=== PATIENT | female | born 1960 | race Caucasian/White ===

== ENCOUNTER → 2016-07-23 | Outpatient (CLI) | payer BC ==
--- NOTE | 2016-07-23 12:03 | WOMENS IMAGING REPORT ---
EXAM DESCRIPTION: BILAT SCREENING MAMMO W/CAD COMPLETED DATE/TIME: 07/23/2016 8:16 am REASON FOR STUDY: Z12.31 ROUTINE SCREENING MAMMO Z12.31 ENCNTR SCREEN MAMMOGRAM FOR MALIGNANT NEOPL ASM OF RICARDO COMPARISON: None. TECHNIQUE: Standard craniocaudal and mediolateral oblique views of each breast recorded using OpenDoora l acquisition. LIMITATIONS: None. FINDINGS: No masses, calcifications or architectural distortion. No areas of suspicion. Read with the assistance of CAD. .[facility] - R2 Cenova Version 1.3 .[facility] - R2 Cenova Version 1.3 .[facility] - R2 Cenova Version 2.4 .[facility] - R2 Cenova Version 2.4 .[facility] - R2 [employer] Worker Version 9.2 BREAST DENSITY: b. There are scattered areas of fibroglandular density. BIRAD: 1 NEGATIVE RECOMMENDATION: ROUTINE SCREENING COMMENT: PATIENT NOTIFIED BY LETTER. The [employer] recommends an annual screening mammogram for women aged 40 years or over. Each patient will receive a reminder prior to the anniversary date of her mammogram. The [employer] (ACR) has developed recommendations for screening MRI of the breast s in certain patient populations, to be used in conjunction with mammography. Breast MRI surveillanc e may be appropriate for women with more than 20% lifetime risk of developing breast cancer as deter mined by genetic testing, significant family history of the disease, or history of mantle radiation f or Hodgkins Disease. ACR Practice Guidelines 2008. TECHNICAL DOCUMENTATION: FINDING NUMBER: (1) ASSESSMENT: (1) JOB ID: [id number] [employer]- All Rights Reserved
== END ==
LOC: WI 08:00
PROVIDERS: ATTEND Family Medicine
DX: Z12.31 Encounter for screening mammogram for malignant neoplasm of breast (principal)
CPT/HCPCS: 77067; G0202

== ENCOUNTER → 2016-09-12 | Outpatient (CLI) | payer BC | LOC: RAD 15:09 | PROVIDERS: ATTEND Urology | DX: N20.0 Calculus of kidney (principal) | CPT/HCPCS: 74176 ==

== ENCOUNTER 2016-11-22 16:11 | Emergency (ER) | payer BC ==
--- NOTE | 2016-11-22 18:18 | ER Document Report ---
ED Medical Screen (RME) - General Mode of Arrival: Ambulatory Information source: Patient TRAVEL OUTSIDE OF THE U.S. IN LAST 30 DAYS: No <SHADI BHAKTA - Last Filed: 11/22/16 20:49> <RUBENS VENCES - Last Filed: 11/27/16 19:25> - General Chief Complaint: Chest Pain Stated Complaint: CHEST PAIN Time Seen by Provider: 11/22/16 18:09 Notes: Patient presents with complaints of chest pain. Patient states she is followed by [facility] for psychiatric health concerns and her Focalin prescription was changed from 20 mg back down to 15 mg due to an elevated heart rate. Patient states her pain has been "all day" beginning at 1000. Patient states the pain is located at her sternum and radiates to her back. Patient states her pain is "constant". Patient states she had a 1 [address] monitor by Dr. George however she never returned to get the results of it. Patient denies any change in her chest pain with activity, history of GERD, vomiting, fever, chills, or cough. ( SHADI BHAKTA) - Related Data Allergies/Adverse Reactions: meperidine [From Demerol] Allergy (Verified 11/22/16 16:25) Past Medical History - Past Medical History Cardiac Medical History: Reports: Hx Hypertension - history of and no longer on meds Denies: Hx Coronary Artery Disease, Hx Heart Attack Pulmonary Medical History: Denies: Hx Asthma, Hx Bronchitis, Hx COPD, Hx Pneumonia Neurological Medical History: Denies: Hx Cerebrovascular Accident, Hx Seizures Renal/ Medical History: Denies: Hx Peritoneal Dialysis Musculoskeltal Medical History: Denies Hx Arthritis Past Surgical History: Reports: Hx Orthopedic Surgery - ORIF of right ankle, Hx Tubal Ligation - Immunizations Hx Diphtheria, Pertussis, Tetanus Vaccination: No <SHADI BHAKTA - Last Filed: 11/22/16 20:49> Review of Systems - Review of Systems Cardiovascular: See HPI, Chest pain <SHADI BHAKTA - Last Filed: 11/22/16 20:49> Physical Exam - Respiratory Respiratory status: No respiratory distress Chest status: Nontender Breath sounds: Normal - Cardiovascular Rhythm: Regular Heart sounds: Normal auscultation Murmur: No <SHADI BHAKTA - Last Filed: 11/22/16 20:49> Course - Laboratory Result Diagrams: 11/22/16 18:55 11/22/16 18:55 <SHADI BHAKTA - Last Filed: 11/22/16 20:49> - Laboratory Result Diagrams: 11/22/16 18:55 11/22/16 18:55 <RUBENS VENCES - Last Filed: 11/27/16 19:25> - Re-evaluation Re-evalutation: 11/22/16 18:19 Patient presents emergency room chief with substernal chest pain radiating to her back. She states it has been going on constantly since about 10:00 this morning. Says she has a history of anxiety and she has panic attacks occasionally she will get some intermittent symptoms but is never been like this before. Said she saw Dr. Walton last year and were a Holter monitor for a day but she was in a bad mood because she was out of her ADHD medications and never returned. She denies having a heart attack in the past and is not not had a stress test or heart catheterization. Her doctor that she saw at the [facility] today who put her on her ADHD medication is been concerned about her heart rate and has been taking her medication for ADHD over the last several weeks. She denies any epigastric abdominal pain right upper quadrant pain or known gallbladder problems. She denies any issues with food. On examination she is well-appearing nontoxic in no acute distress head is normal psych atraumatic heart lungs abdomen soft no tenderness guarding or rigidity. EKG interpreted by myself to show a sinus tachycardia with no acute ST segment elevations or depression. Plan cardiac enzymes chest x-ray and she is getting in the bed in the back to see me inside physician for further evaluation and disposition I personally performed the services described in the documentation reviewed the documentation recorded by my scribe in my presence and it accurately and completely records my words and actions (RUBENS VENCES) - Vital Signs Vital signs: Temp Pulse Resp BP Pulse Ox 97.6 F 89 16 142/81 H 97 11/22/16 22:26 11/22/16 22:26 11/22/16 22:26 11/22/16 22:26 11/22/16 22:26 - Laboratory Laboratory results interpreted by me: 11/22/16 11/22/16 11/22/16 18:55 18:55 20:05 WBC 11.1 H Carbon Dioxide 31 H Glucose 113 H Ur Leukocyte Esterase TRACE H Urine Ascorbic Acid 40 H Doctor's Discharge <SHADI BHAKTA - Last Filed: 11/22/16 20:49> <RUBENS VENCES - Last Filed: 11/27/16 19:25> - Discharge Clinical Impression: Palpitations Chest pain Qualifiers: Chest pain type: unspecified Qualified Code(s): R07.9 - Chest pain, unspecified Condition: Stable Disposition: HOME, SELF-CARE Instructions: Chest Pain of Unclear Cause ([facility]), Palpitations (Irregular or Rapid Heartrate) ([facility]) Additional Instructions: Follow up with your primary care provider and strapping machine tender in one to 2 days. Return to the emergency room immediately if symptoms worsen or any additional concerns. Forms: Return to Work Referrals: WERO IRVING, EMAIL ADMINISTRATOR-C [Primary Care Provider] - Follow up as needed Scribe Documentation - Scribe Written by Scribe:: Wicho Penaloza, 11/22/16 2100 acting as scribe for :: Mike <SHADI BHAKTA - Last Filed: 11/22/16 20:49>
[2016-11-22] MEDS ORDERED: ASPIRIN 325 MG TABLET PO ONE (18:19)
[2016-11-22 19:15] LABS: ABSOLUTE BASOPHILS # (AUTO) 0.1 10^3/uL (0.0-0.2); ABSOLUTE LYMPHOCYTES (AUTO) 3.2 10^3/uL (0.5-4.7); ABSOLUTE MONOCYTES (AUTO) 0.7 10^3/uL (0.1-1.4); ABSOLUTE NEUT (AUTO) 7.1 10^3/uL (1.7-8.2); BASOPHILS % (AUTO) 0.8 % (0-2); EOSINOPHILS % (AUTO) 0.3 % (0-6); HEMATOCRIT 43.8 % (36.0-47.0); HEMOGLOBIN 14.1 g/dL (12.0-15.5); HGB HCT DIFFERENCE -1.5; LYMPHOCYTES % (AUTO) 28.4 % (13-45); MEAN CORPUSCULAR HEMOGLOBIN 29.4 pg (27.0-33.4); MEAN CORPUSCULAR HGB CONC 32.1 g/dL (32.0-36.0); MEAN CORPUSCULAR VOLUME 91 fl (80-97); MONOCYTES % (AUTO) 6.3 % (3-13); SEGMENTED NEUTROPHILS % (AUTO) 64.2 % (42-78); WHITE BLOOD COUNT 11.1 10^3/uL (4.0-10.5)
[2016-11-22 19:38] LABS: ALANINE AMINOTRANSFERASE 49 U/L (9-52); ALBUMIN 4.4 g/dL (3.5-5.0); ALKALINE PHOSPHATASE 118 U/L (38-126); ANION GAP 10 (5-19); ASPARTATE AMINO TRANSFERASE 33 U/L (14-36); BILIRUBIN,DIRECT 0.4 mg/dL (0.0-0.4); BILIRUBIN,TOTAL 0.5 mg/dL (0.2-1.3); BLOOD UREA NITROGEN 13 mg/dL (7-20); CALCIUM 9.7 mg/dL (8.4-10.2); CARBON DIOXIDE 31 mmol/L (22-30); CHLORIDE 100 mmol/L (98-107); CREATININE RESULT 0.81 mg/dL (0.52-1.25); GLUCOSE 113 mg/dL (75-110); POTASSIUM 3.9 mmol/L (3.6-5.0); SODIUM 140.7 mmol/L (137-145); TOTAL PROTEIN 7.6 g/dL (6.3-8.2)
[2016-11-22 19:53] LABS: TROPONIN I < 0.012 ng/mL
--- NOTE | 2016-11-22 20:26 | ER Document Report ---
ED Cardiac - General Chief Complaint: Chest Pain Stated Complaint: CHEST PAIN Time Seen by Provider: 11/22/16 18:09 Mode of Arrival: Ambulatory Information source: Patient TRAVEL OUTSIDE OF THE [place]. IN LAST 30 DAYS: No - HPI Patient complains to provider of: Chest pain, Palpitations, Shortness of breath Was the onset of pain: Sudden Is the pain a: New problem Chest pain location: Substernal, Pleuritic Quality of pain: Achy Severity now: Moderate Severity at worst: Moderate Chest pain precipitating factors: At Rest Associated symptoms: Palpitations, Shortness of breath Exacerbated by: Deep breaths Relieved by: Nothing Similar symptoms previously: Yes Recently seen / treated by doctor: Yes Notes: Patient is a 56-year-old female who presents to the emergency room complaining of left-sided chest pain which is dull and achy in nature and radiates through to the back, she reports this started around 3 PM today, it is worse with deep breath and she feels short of breath at time, she reports a small amount of nausea earlier in the day which is better now, as well as palpitations and tachycardia, however she has been having some symptoms related to tachycardia since June 2016 which she relates to medication dosage adjustments to her Focalin, she does have a history of adult ADHD, generalized anxiety disorder with panic attacks, bipolar disorder with depression, denies being a smoker, did not take hormone replacement and no recent periods of immobilization, she does report a history of an ankle fracture in January 2016 but no other traumatic injuries - Related Data Allergies/Adverse Reactions: meperidine [From Demerol] Allergy (Verified 11/22/16 16:25) Past Medical History - General Information source: Patient - Social History Smoking Status: Never Smoker Family History: Reviewed & Not Pertinent Patient has suicidal ideation: No Patient has homicidal ideation: No - Past Medical History Cardiac Medical History: Reports: Hx Hypertension - history of and no longer on meds Denies: Hx Coronary Artery Disease, Hx Heart Attack Pulmonary Medical History: Denies: Hx Asthma, Hx Bronchitis, Hx COPD, Hx Pneumonia Neurological Medical History: Denies: Hx Cerebrovascular Accident, Hx Seizures Renal/ Medical History: Denies: Hx Peritoneal Dialysis Musculoskeltal Medical History: Denies Hx Arthritis Past Surgical History: Reports: Hx Orthopedic Surgery - ORIF of right ankle, Hx Tubal Ligation - Immunizations Hx Diphtheria, Pertussis, Tetanus Vaccination: No Review of Systems - Review of Systems Constitutional: No symptoms reported EENT: No symptoms reported Cardiovascular: See HPI Respiratory: See HPI Gastrointestinal: See HPI Genitourinary: No symptoms reported Female Genitourinary: No symptoms reported Musculoskeletal: No symptoms reported Skin: No symptoms reported Hematologic/Lymphatic: No symptoms reported Neurological/Psychological: No symptoms reported -: Yes All other systems reviewed and negative Physical Exam - Vital signs Vitals: Temp Pulse Resp BP Pulse Ox 99.2 F 110 H 18 172/91 H 95 11/22/16 16:26 11/22/16 16:26 11/22/16 16:26 11/22/16 16:11/22/16 16:26 Interpretation: Hypertensive, Tachycardic - General General appearance: Appears well, Alert - HEENT Head: Normocephalic, Atraumatic Eyes: Normal Pupils: PERRL - Respiratory Respiratory status: No respiratory distress Chest status: Nontender Breath sounds: Normal Chest palpation: Normal - Cardiovascular Rhythm: Regular Heart sounds: Normal auscultation Murmur: No - Abdominal Inspection: Normal Distension: No distension Bowel sounds: Normal Tenderness: Nontender Organomegaly: No organomegaly - Back Back: Normal, Nontender - Extremities General upper extremity: Normal inspection, Nontender, Normal color, Normal ROM , Normal temperature General lower extremity: Normal inspection, Nontender, Normal color, Normal ROM , Normal temperature, Normal weight bearing. No: James's sign - Neurological Neuro grossly intact: Yes Cognition: Normal Orientation: AAOx4 Blaire Coma Scale Eye Opening: Spontaneous Blaire Coma Scale Verbal: Oriented Blaire Coma Scale Motor: Obeys Commands Blaire Coma Scale Total: 15 Speech: Normal Motor strength normal: LUE, RUE, LLE, RLE Sensory: Normal - Psychological Associated symptoms: Normal affect, Normal mood - Skin Skin Temperature: Warm Skin Moisture: Dry Skin Color: Normal Course - Re-evaluation Re-evalutation: 11/22/16 21:40 Lab and imaging findings were discussed with patient at bedside which are unremarkable, symptoms likely related to recent medication changes, she will be discharged with instructions for follow-up and advised to return if symptoms worsen, patient acknowledges understanding and agreement with this plan - Vital Signs Vital signs: Temp Pulse Resp BP Pulse Ox 99.2 F 110 H 18 172/91 H 95 11/22/16 16:26 11/22/16 16:26 11/22/16 16:26 11/22/16 16:26 11/22/16 16:26 - Laboratory Result Diagrams: 11/22/16 18:55 11/22/16 18:55 Laboratory results interpreted by me: 11/22/16 11/22/16 11/22/16 18:55 18:55 20:05 WBC 11.1 H Carbon Dioxide 31 H Glucose 113 H Ur Leukocyte Esterase TRACE H Urine Ascorbic Acid 40 H - Diagnostic Test Radiology reviewed: Image reviewed, Reports reviewed - EKG Interpretation by Me EKG shows normal: Sinus rhythm Rate: Tachycardia - 114 Discharge - Discharge Clinical Impression: Palpitations Chest pain Qualifiers: Chest pain type: unspecified Qualified Code(s): R07.9 - Chest pain, unspecified Condition: Stable Disposition: HOME, SELF-CARE Instructions: Chest Pain of Unclear Cause ([facility]), Palpitations (Irregular or Rapid Heartrate) ([facility]) Additional Instructions: Follow up with your primary care provider and gateman in one to 2 days. Return to the emergency room immediately if symptoms worsen or any additional concerns. Forms: Return to Work
[2016-11-22 20:30] LABS: APPEARANCE,URINE SLIGHTLY-CLOUDY; BILIRUBIN,URINE NEGATIVE (NEGATIVE); GLUCOSE, URINE NEGATIVE (NEGATIVE); KETONES,URINE NEGATIVE (NEGATIVE); LEUKOCYTE ESTERASE,URINE TRACE (NEGATIVE); NITRITE,URINE NEGATIVE (NEGATIVE); PROTEIN,URINE NEGATIVE (NEGATIVE); URINE SPECIFIC GRAVITY 1.025; UROBILINOGEN,URINE NEGATIVE mg/dL (<2.0)
[2016-11-22 22:27] VITALS: BP 142/81
--- NOTE | 2016-11-23 17:42 | EKG REPORT ---
SEVERITY:- OTHERWISE NORMAL ECG - SINUS TACHYCARDIA : Confirmed by: Polly Hayes MD 23-Nov-2016 17:41:45
== END 2016-11-22 22:26 | disposition home or self-care (01) ==
LOC: ER 16:11
DX: R00.2 Palpitations (principal); R07.9 Chest pain, unspecified; R06.02 Shortness of breath
CPT/HCPCS: 36415; 71010; 71275; 80053; 81001; 83690; 83880; 84484; 85025; 93005; 93010; 99285

== ENCOUNTER 2017-04-25 20:57 | Emergency (ER) | payer SELFPAY ==
--- NOTE | 2017-04-25 21:22 | ER Document Report ---
ED General Pain - General Stated Complaint: CHEST PAIN Time Seen by Provider: 04/25/17 21:08 Mode of Arrival: Medic Information source: Patient Notes: 57-year-old female presents to ED for complaint of chest pain started this afternoon after she was running around with her daughter. She states she had sudden chest pain with nausea. She came via EMS. EMS gave her aspirin and nitro with no relief. TRAVEL OUTSIDE OF THE [place] IN LAST 30 DAYS: No - HPI Onset: This evening Onset/Duration: Sudden Quality of pain: Sharp Severity: Moderate Pain Level: 4 Context: New onset, Other - Recent cough and cold with no fevers Exacerbated by: Coughing - Recent cough and cold, Other - States she was out running around with her daughter when she had the sudden pain in her chest and nausea Relieved by: Denies Similar symptoms previously: Yes Recently seen / treated by doctor: No - Related Data Allergies/Adverse Reactions: meperidine [From Demerol] Allergy (Verified 11/22/16 16:25) Past Medical History - General Information source: Patient - Social History Smoking Status: Never Smoker Cigarette use (# per day): No Chew tobacco use (# tins/day): No Smoking Education Provided: No Frequency of alcohol use: None Drug Abuse: None Lives with: Family Family History: Reviewed & Not Pertinent Patient has suicidal ideation: No Patient has homicidal ideation: No - Past Medical History Cardiac Medical History: Reports: Hx Hypertension - history of and no longer on meds Pulmonary Medical History: Reports: None EENT Medical History: Reports: None Neurological Medical History: Reports: None Endocrine Medical History: Reports: None Renal/ Medical History: Reports: None Malignancy Medical History: Reports: None GI Medical History: Reports: None Musculoskeltal Medical History: Reports Hx Musculoskeletal Deformity, Reports Hx Musculoskeletal Trauma Skin Medical History: Reports None Psychiatric Medical History: Reports: None Traumatic Medical History: Reports: Hx Fractures - right ankle Infectious Medical History: Reports: None Past Surgical History: Reports: Hx Dilation and Curettage, Hx Genitourinary Surgery - bladder lift with mash, Hx Hysterectomy, Hx Orthopedic Surgery - ORIF of right ankle, Hx Tubal Ligation - Immunizations Hx Diphtheria, Pertussis, Tetanus Vaccination: No Review of Systems - Review of Systems Constitutional: Recent illness EENT: Nose congestion Cardiovascular: Chest pain Respiratory: Cough Gastrointestinal: Nausea. denies: Vomiting Genitourinary: No symptoms reported Female Genitourinary: No symptoms reported Musculoskeletal: No symptoms reported Skin: No symptoms reported Hematologic/Lymphatic: No symptoms reported Neurological/Psychological: No symptoms reported -: Yes All other systems reviewed and negative Physical Exam - Vital signs Vitals: Pulse Ox 94 04/25/17 21:11 Interpretation: Normal - General General appearance: Appears well, Alert - HEENT Head: Normocephalic, Atraumatic Eyes: Normal Pupils: PERRL Ears: Normal External canal: Normal Tympanic membrane: Normal Sinus: Normal Nasal: Swelling, Clear rhinorrhea Mouth/Lips: Normal Mucous membranes: Normal Pharynx: Normal Neck: Normal - Respiratory Respiratory status: No respiratory distress Chest status: Tender - Bilateral worse on left Breath sounds: Nonproductive cough. No: Rales, Rhonchi, Stridor, Wheezing Chest palpation: Normal - Cardiovascular Rhythm: Regular Heart sounds: Normal auscultation Murmur: No - Abdominal Inspection: Normal Distension: No distension Bowel sounds: Normal Tenderness: Nontender Organomegaly: No organomegaly - Back Back: Normal, Nontender - Extremities General upper extremity: Normal inspection, Nontender, Normal color, Normal ROM , Normal temperature General lower extremity: Normal inspection, Nontender, Normal color, Normal ROM , Normal temperature, Normal weight bearing. No: James's sign - Neurological Neuro grossly intact: Yes Cognition: Normal Orientation: AAOx4 Blaire Coma Scale Eye Opening: Spontaneous Blaire Coma Scale Verbal: Oriented [place] Coma Scale Motor: Obeys Commands [place] Coma Scale Total: 15 Speech: Normal Motor strength normal: LUE, RUE, LLE, RLE Sensory: Normal - Psychological Associated symptoms: Normal affect, Normal mood - Skin Skin Temperature: Warm Skin Moisture: Dry Skin Color: Normal Course - Re-evaluation Re-evalutation: 04/25/17 22:32 X-rays and labs discussed with patient and Dr. Mahmood. Will discharge patient home with prescription for doxycycline and [place] dispense pack for her pain. Patient to follow-up with her primary doctor. Written report of labs and x-ray given to patient. Patient has a left lower lobe pneumonia on x-ray. WBC is 14.8 with segs of 70.3 cardiac enzymes are negative labs are within normal ranges. - Vital Signs Vital signs: Temp Pulse Resp BP Pulse Ox 19 115/76 95 04/25/17 22:00 04/25/17 21:13 04/25/17 22:00 - Laboratory Result Diagrams: 04/25/17 21:25 04/25/17 21:25 Laboratory results interpreted by me: 04/25/17 04/25/17 21:25 21:25 WBC 14.8 H Absolute Neutrophils 10.4 H Glucose 144 H - Diagnostic Test Radiology reviewed: Image reviewed, Reports reviewed Discharge - Discharge Clinical Impression: Left lower lobe pneumonia Qualifiers: Pneumonia type: due to unspecified organism Qualified Code(s): J18.1 - Lobar pneumonia, unspecified organism Condition: Stable Disposition: HOME, SELF-CARE Additional Instructions: PNEUMONIA: Your examination indicates that you have pneumonia. This is an infection of the lung tissue, usually caused by bacteria or a virus. Symptoms include cough, fever, shaking chills, chest pain, shortness of breath, and coughing up bloody sputum. Treatment for bacterial pneumonia includes rest, antibiotics for 10 to 14 days, increasing your clear liquid intake, a cool mist humidifier at your bedside, and fever medication. Often, a repeat chest X-ray is performed in a few weeks--even if you feel better--to ascertain whether the infection has completely resolved and no underlying lung problem is present. You should call the physician if you develop persistent vomiting, high fever that does not respond to fever medication, increasing shortness of breath , confusion, or lethargy. Also, failure to improve within two to three days is an indication for re-examination. DOXYCYCLINE: Doxycycline (Vibramycin, Doryx) is an antibiotic of the tetracycline family. This type of drug is useful for infections of the respiratory tract and genital tract, and is sometimes used for intestinal infections. Unlike most tetracyclines, doxycycline can be taken with food. It is longer acting, and (usually) less prone to side effects than regular tetracycline. Tetracycline antibiotics can stain immature teeth and SHOULD NOT BE TAKEN BY CHILDREN, NURSING MOTHERS, OR WOMEN. Tetracyclines can make you more prone to sunburn. Abdominal cramping, nausea, and diarrhea are occasional side effects. Women may experience vaginal yeast infections. Call the doctor at once if you develop hives, itching, shortness of breath , or lightheadedness. USE OF ACETAMINOPHEN (Tylenol): Acetaminophen may be taken for pain relief or fever control. It's much safer than aspirin, offering a wider range of "safe" dosages. It is safe during . Some brand names are Tylenol, Panadol, Datril, Anacin 3, Tempra, and Liquiprin. Acetaminophen can be repeated every four hours. The following are maximum recommended dosages: WEIGHT Dose Drops Elixir Chewable( 80mg) (LBS.) drprs=droppers tsp=teaspoon 6 40 mg 0.4 ml (1/2) 6-11 80 mg 0.8 ml (full) tsp 1 tab 12-16 120 mg 1 1/2 drprs 3/4 tsp 1 1/2 tabs 17-23 160 mg 2 drprs 1 tsp 2 tabs 24-30 240 mg 3 drprs 1 1/2 tsp 3 tabs 30-35 320 mg 2 tsp 4 tabs 36-41 360 mg 2 1/4 tsp 4 1/2 tabs 42-47 400 mg 2 1/2 tsp 5 tabs 48-53 480 mg 3 tsp 6 tabs 54-59 520 mg 3 1/4 tsp 6 1/2 tabs 60-64 560 mg 3 1/2 tsp 7 tabs 65-70 600 mg 3 3/4 tsp 7 1/2 tabs 71-76 640 mg 4 tsp 8 tabs 77-82 720 mg 4 1/2 tsp 9 tabs 83-88 800 mg 5 tsp 10 tabs >89 pounds or adults 650 mg to 900 mg Acetaminophen can be repeated every four hours. Maximum dose not to exceed 4000 mg a day. These maximum recommended dosages are slightly higher than the dosages written on the product container, but these dosages are very safe and below the toxic dosage for acetaminophen. Oral Narcotic Medication You have been given a [email or web address] dispense pack for pain control. This medication is a narcotic. It's best taken with food, as nausea can result if taken on an empty stomach. Don't operate machinery or drive within six hours of taking this medication. Do not combine this medicine with alcohol, or with any medication which can cause sedation (such as cold tablets or sleeping pills) unless you get permission from the physician. Narcotics tend to cause constipation. If possible, drink plenty of fluids and eat a diet high in fiber and fruits. Do not take Tylenol at the same time as you are taking your narcotics as they both have Tylenol. Try to space her narcotics out and take Tylenol or Motrin for your pain. Take the narcotics when you pain is unrelieved with Tylenol or Motrin. FOLLOW-UP CARE: If you have been referred to a physician for follow-up care, call the physician s office for an appointment as you were instructed or within the next two days. If you experience worsening or a significant change in your symptoms, notify the physician immediately or return to the Emergency Department at any time for re-evaluation. Prescriptions: Doxycycline Hyclate 100 mg PO BID #20 tablet Forms: Return to Work
--- NOTE | 2017-04-25 21:38 | RADIOLOGY REPORT (SQ) ---
EXAM DESCRIPTION: CHEST PA/LAT COMPLETED DATE/TIME: 04/25/2017 9:31 pm REASON FOR STUDY: chest pain worse on left hx of a cough COMPARISON: 11/22/2016 EXAM PARAMETERS: NUMBER OF VIEWS: two views TECHNIQUE: Digital Frontal and Lateral radiographic views of the chest acquired. RADIATION DOSE: NA LIMITATIONS: none FINDINGS: LUNGS AND PLEURA: Left lower lobe airspace disease. Lungs and pleural spaces otherwise cl ear. MEDIASTINUM AND HILAR STRUCTURES: No masses or contour abnormalities. HEART AND VASCULAR STRUCTURES: Heart normal size. No evidence for failure. BONES: No acute findings. HARDWARE: None in the chest. OTHER: No other significant finding. IMPRESSION: LEFT LOWER LOBE AIRSPACE DISEASE COMPATIBLE WITH PNEUMONIA. RECOMMEND FOLLOWUP RADIOGRA PHS 4 TO 6 WEEKS TO ENSURE RESOLUTION. TECHNICAL DOCUMENTATION: JOB ID: [id number] [employer]- All Rights Reserved
[2017-04-25 21:47] LABS: ABSOLUTE BASOPHILS # (AUTO) 0.1 10^3/uL (0.0-0.2); ABSOLUTE EOSINOPHILS # (AUTO) 0.1 10^3/uL (0.0-0.6); ABSOLUTE MONOCYTES (AUTO) 1.1 10^3/uL (0.1-1.4); ABSOLUTE NEUT (AUTO) 10.4 10^3/uL (1.7-8.2); EOSINOPHILS % (AUTO) 0.4 % (0-6); HEMATOCRIT 37.2 % (36.0-47.0); HEMOGLOBIN 12.5 g/dL (12.0-15.5); HGB HCT DIFFERENCE 0.3; LYMPHOCYTES % (AUTO) 20.6 % (13-45); MEAN CORPUSCULAR HEMOGLOBIN 30.5 pg (27.0-33.4); MEAN CORPUSCULAR HGB CONC 33.7 g/dL (32.0-36.0); MEAN CORPUSCULAR VOLUME 90 fl (80-97); MONOCYTES % (AUTO) 7.7 % (3-13); RED BLOOD COUNT 4.12 10^6/uL (3.72-5.28); RED CELL DISTRIBUTION WIDTH 13.9 % (11.5-14.0); SEGMENTED NEUTROPHILS % (AUTO) 70.3 % (42-78); WHITE BLOOD COUNT 14.8 10^3/uL (4.0-10.5)
[2017-04-25 22:01] LABS: ALANINE AMINOTRANSFERASE 46 U/L (9-52); ALKALINE PHOSPHATASE 115 U/L (38-126); ANION GAP 13 (5-19); ASPARTATE AMINO TRANSFERASE 29 U/L (14-36); BILIRUBIN,DIRECT 0.4 mg/dL (0.0-0.4); BILIRUBIN,TOTAL 0.5 mg/dL (0.2-1.3); BLOOD UREA NITROGEN 15 mg/dL (7-20); CALCIUM 9.4 mg/dL (8.4-10.2); CARBON DIOXIDE 28 mmol/L (22-30); CHLORIDE 101 mmol/L (98-107); CREATINE KINASE 81 U/L (30-135); GLUCOSE 144 mg/dL (75-110); LIPASE 198.6 U/L (23-300); MAGNESIUM 1.9 mg/dL (1.6-2.3); POTASSIUM 3.9 mmol/L (3.6-5.0); SODIUM 141.9 mmol/L (137-145); TOTAL PROTEIN 7.1 g/dL (6.3-8.2)
[2017-04-25 22:02] LABS: CREATININE RESULT 0.79 mg/dL (0.52-1.25)
[2017-04-25] MEDS ORDERED: HYDROCODONE/ACETAMINOPHEN 5-325 MG TABLET PO ONE (22:09)
[2017-04-25] MEDS ORDERED: DOXYCYCLINE HYCLATE 100 MG TABLET PO ONE (22:12)
[2017-04-25 22:13] LABS: CREATINE KINASE MB 0.36 ng/mL (<4.55)
[2017-04-25 22:29] LABS: TROPONIN I < 0.012 ng/mL
[2017-04-25] MEDS ORDERED: HYDROCODONE/ACETAMINOPHEN 5-325 MG 6 TAB/DSPK PO PRN (22:39)
[2017-04-25 22:45] VITALS: BP 119/67
--- NOTE | 2017-04-26 10:32 | EKG REPORT ---
SEVERITY:- BORDERLINE ECG - SINUS TACHYCARDIA BORDERLINE T ABNORMALITIES, DIFFUSE LEADS : Confirmed by: Polly Hayes MD 26-Apr-2017 10:31:50
== END 2017-04-25 23:05 | disposition home or self-care (01) ==
LOC: ER 20:57
DX: J18.1 Lobar pneumonia, unspecified organism (principal); R07.9 Chest pain, unspecified; R11.0 Nausea; R05 Cough; R09.81 Nasal congestion; J34.89 Other specified disorders of nose and nasal sinuses; I10 Essential (primary) hypertension; Z88.5 Allergy status to narcotic agent
CPT/HCPCS: 36415; 71020; 80053; 82550; 82553; 83690; 83735; 84484; 84703; 85025; 93005; 93010; 99285

== ENCOUNTER 2018-01-12 19:30 | Emergency (ER) | payer SELFPAY ==
[2018-01-12] MEDS ORDERED: ASPIRIN 81 MG TABLET, CHEWABLE PO ONE (20:08)
--- NOTE | 2018-01-12 20:12 | ER Document Report ---
ED Medical Screen (RME) - General Chief Complaint: Chest Congestion Stated Complaint: CHEST CONGESTION Time Seen by Provider: 01/12/18 20:08 Mode of Arrival: Ambulatory Information source: Patient Notes: 57-year-old female hypertensive and hyper lipidemic who is not taking medicine at this time is complaining of chest tightness intermittently for several months. She wakes up in the middle the night not being able to breathe she says that is from nasal congestion but she has a sensation of shortness of breath. Ex smoker. She uses nasal decongestants 2-3 times a day and she has been snoring a lot. She states she has chest tightness at this time. She also is complaining of dorsal left foot swelling because of closing it in the car door 3 times in the past 2 months. She has no primary care doctor. TRAVEL OUTSIDE OF THE [place] IN LAST 30 DAYS: No - Related Data Allergies/Adverse Reactions: meperidine [From Demerol] Allergy (Verified 11/22/16 16:25) Past Medical History - Social History Chew tobacco use (# tins/day): No Frequency of alcohol use: None Drug Abuse: None - Past Medical History Cardiac Medical History: Reports: Hx Hypercholesterolemia, Hx Hypertension - history of and no longer on meds Denies: Hx Coronary Artery Disease, Hx Heart Attack Pulmonary Medical History: Denies: Hx Asthma, Hx Bronchitis, Hx COPD, Hx Pneumonia Neurological Medical History: Denies: Hx Cerebrovascular Accident, Hx Seizures Renal/ Medical History: Denies: Hx Peritoneal Dialysis Musculoskeltal Medical History: Denies Hx Arthritis, Reports Hx Musculoskeletal Deformity, Reports Hx Musculoskeletal Trauma Traumatic Medical History: Reports: Hx Fractures - right ankle Past Surgical History: Reports: Hx Dilation and Curettage, Hx Genitourinary Surgery - bladder lift with mash, Hx Hysterectomy, Hx Orthopedic Surgery - ORIF of right ankle, Hx Tubal Ligation - Immunizations Hx Diphtheria, Pertussis, Tetanus Vaccination: No Physical Exam - Vital signs Vitals: Temp Pulse Resp BP Pulse Ox 98.6 F 97 16 155/80 H 97 01/12/18 19:42 01/12/18 19:42 01/12/18 19:42 01/12/18 19:42 01/12/18 19:42 Course - Vital Signs Vital signs: Temp Pulse Resp BP Pulse Ox 98.6 F 97 16 155/80 H 97 01/12/18 19:42 01/12/18 19:42 01/12/18 19:42 01/12/18 19:42 01/12/18 19:42 Doctor's Discharge - Discharge Referrals: GENEVA BATEMAN PA-C [Primary Care Provider] - Follow up as needed
--- NOTE | 2018-01-12 21:05 | RADIOLOGY REPORT (SQ) ---
EXAM DESCRIPTION: FOOT LEFT COMPLETE COMPLETED DATE/TIME: 01/12/2018 8:42 pm REASON FOR STUDY: swelling to left dorsal foot COMPARISON: None. NUMBER OF VIEWS: Three views. TECHNIQUE: AP, lateral and oblique radiographic images acquired of the left foot. LIMITATIONS: None. FINDINGS: MINERALIZATION: Normal. BONES: No acute fracture or dislocation. No worrisome bone lesions. JOINTS: No effusions. SOFT TISSUES: No soft tissue swelling. No foreign body. OTHER: No other significant finding. IMPRESSION: NEGATIVE STUDY OF THE LEFT FOOT. NO RADIOGRAPHIC EVIDENCE OF ACUTE INJURY. TECHNICAL DOCUMENTATION: JOB ID: [id number] [employer]- All Rights Reserved Reading location - IP/workstation name: [email or web address]
--- NOTE | 2018-01-12 21:08 | RADIOLOGY REPORT (SQ) ---
EXAM DESCRIPTION: CHEST 2 VIEWS COMPLETED DATE/TIME: 01/12/2018 8:42 pm REASON FOR STUDY: CHEST CONGESTION COMPARISON: 04/25/2017 EXAM PARAMETERS: NUMBER OF VIEWS: two views TECHNIQUE: Digital Frontal and Lateral radiographic views of the chest acquired. RADIATION DOSE: NA LIMITATIONS: none FINDINGS: LUNGS AND PLEURA: No opacities, masses or pneumothorax. No pleural effusion. MEDIASTINUM AND HILAR STRUCTURES: No masses or contour abnormalities. HEART AND VASCULAR STRUCTURES: Heart normal size. No evidence for failure. BONES: No acute findings. HARDWARE: None in the chest. OTHER: No other significant finding. IMPRESSION: NO ACUTE RADIOGRAPHIC FINDING IN THE CHEST. TECHNICAL DOCUMENTATION: JOB ID: [id number] [employer]- All Rights Reserved Reading location - IP/workstation name: [email or web address]
[2018-01-12 21:09] LABS: ABSOLUTE BASOPHILS # (AUTO) 0.1 10^3/uL (0.0-0.2); ABSOLUTE EOSINOPHILS # (AUTO) 0.1 10^3/uL (0.0-0.6); ABSOLUTE LYMPHOCYTES (AUTO) 3.3 10^3/uL (0.5-4.7); ABSOLUTE MONOCYTES (AUTO) 0.7 10^3/uL (0.1-1.4); ABSOLUTE NEUT (AUTO) 5.2 10^3/uL (1.7-8.2); HEMATOCRIT 40.1 % (36.0-47.0); HEMOGLOBIN 13.8 g/dL (12.0-15.5); LYMPHOCYTES % (AUTO) 35.5 % (13-45); MEAN CORPUSCULAR HEMOGLOBIN 31.2 pg (27.0-33.4); MEAN CORPUSCULAR HGB CONC 34.5 g/dL (32.0-36.0); MEAN CORPUSCULAR VOLUME 90 fl (80-97); MONOCYTES % (AUTO) 7.4 % (3-13); PLATELET COUNT 288 10^3/uL (150-450); RED BLOOD COUNT 4.43 10^6/uL (3.72-5.28); RED CELL DISTRIBUTION WIDTH 14.2 % (11.5-14.0); SEGMENTED NEUTROPHILS % (AUTO) 55.1 % (42-78); TOTAL CELLS COUNTED % (AUTO) 100 %; WHITE BLOOD COUNT 9.4 10^3/uL (4.0-10.5)
[2018-01-12 21:18] LABS: ALANINE AMINOTRANSFERASE 36 U/L (9-52); ALBUMIN 4.1 g/dL (3.5-5.0); ALKALINE PHOSPHATASE 68 U/L (38-126); ANION GAP 12 (5-19); ASPARTATE AMINO TRANSFERASE 29 U/L (14-36); BILIRUBIN,DIRECT 0.3 mg/dL (0.0-0.4); BILIRUBIN,TOTAL 0.3 mg/dL (0.2-1.3); BLOOD UREA NITROGEN 15 mg/dL (7-20); CALCIUM 9.4 mg/dL (8.4-10.2); CARBON DIOXIDE 30 mmol/L (22-30); CHLORIDE 102 mmol/L (98-107); GLUCOSE 109 mg/dL (75-110); POTASSIUM 4.1 mmol/L (3.6-5.0); SODIUM 144.2 mmol/L (137-145); TOTAL PROTEIN 7.6 g/dL (6.3-8.2)
--- NOTE | 2018-01-12 21:51 | ER Document Report ---
ED General - General Chief Complaint: Chest Congestion Stated Complaint: CHEST CONGESTION Time Seen by Provider: 01/12/18 20:08 Mode of Arrival: Ambulatory Notes: Patient is a 57-year-old female with a past medical history of hypothyroidism, hypertension, hyperlipidemia, currently off all medications who presents with 2- 3 months of feelings of shortness of breath and chest tightness that often wakes her from sleep. Her main complaint is mostly of persistent nasal congestion and a feeling of chest congestion. She has been treating this with oxymetazoline without any relief. She notes that her symptoms have been persistent overall unchanged over the past 2-3 months. She has been using oxymetazoline for approximately 3 months. Her roommate at the bedside notes that she has been snoring and coughing during her sleep over that same period of time which is new for her. She does note that when she is awake she does not have any chest pain, shortness of breath but does continue to have sensations of nasal congestion. No known history of coronary artery disease, emphysema or asthma. She has not seen a general doctor regarding these concerns. She apparently is also complaining about left foot pain has been ongoing for the past 2-3 months. TRAVEL OUTSIDE OF THE [place] IN LAST 30 DAYS: No - Related Data Allergies/Adverse Reactions: meperidine [From Demerol] Allergy (Verified 11/22/16 16:25) Past Medical History - General Information source: Patient - Social History Smoking Status: Never Smoker Chew tobacco use (# tins/day): No Frequency of alcohol use: None Drug Abuse: None Lives with: Friend Family History: Reviewed & Not Pertinent Patient has suicidal ideation: No Patient has homicidal ideation: No - Past Medical History Cardiac Medical History: Reports: Hx Hypercholesterolemia, Hx Hypertension - history of and no longer on meds Denies: Hx Coronary Artery Disease, Hx Heart Attack Pulmonary Medical History: Denies: Hx Asthma, Hx Bronchitis, Hx COPD, Hx Pneumonia Neurological Medical History: Denies: Hx Cerebrovascular Accident, Hx Seizures Renal/ Medical History: Denies: Hx Peritoneal Dialysis Musculoskeltal Medical History: Denies Hx Arthritis, Reports Hx Musculoskeletal Deformity, Reports Hx Musculoskeletal Trauma Traumatic Medical History: Reports: Hx Fractures - right ankle Past Surgical History: Reports: Hx Dilation and Curettage, Hx Genitourinary Surgery - bladder lift with mash, Hx Hysterectomy, Hx Orthopedic Surgery - ORIF of right ankle, Hx Tubal Ligation - Immunizations Hx Diphtheria, Pertussis, Tetanus Vaccination: No Review of Systems - Review of Systems Notes: Constitutional: Negative for fever. HENT: Positive for nasal congestion Eyes: Negative for visual changes. Cardiovascular: Negative for chest pain. Respiratory: Positive for shortness of breath. Gastrointestinal: Negative for abdominal pain, vomiting or diarrhea. Genitourinary: Negative for dysuria. Musculoskeletal: Negative for back pain. Skin: Negative for rash. Neurological: Negative for headaches, weakness or numbness. 10 point ROS negative except as marked above and in HPI. Physical Exam - Vital signs Vitals: Temp Pulse Resp BP Pulse Ox 98.6 F 97 16 155/80 H 97 01/12/18 19:42 01/12/18 19:42 01/12/18 19:42 01/12/18 19:42 01/12/18 19:42 Interpretation: Hypertensive Notes: PHYSICAL EXAMINATION: GENERAL: Well-appearing, well-nourished and in no acute distress. HEAD: Atraumatic, normocephalic. EYES: Pupils equal round and reactive to light, extraocular movements intact, sclera anicteric, conjunctiva are normal. ENT: nares patent, oropharynx clear without exudates. Moist mucous membranes. NECK: Normal range of motion, supple without lymphadenopathy LUNGS: Breath sounds clear to auscultation bilaterally and equal. No wheezes rales or rhonchi. HEART: Regular rate and rhythm without murmurs ABDOMEN: Soft, nontender, normoactive bowel sounds. No guarding, no rebound. No masses appreciated. EXTREMITIES: Normal range of motion, no pitting or edema. No cyanosis. NEUROLOGICAL: No focal neurological deficits. Moves all extremities spontaneously and on command. PSYCH: Normal mood, normal affect. SKIN: Warm, Dry, normal turgor, no rashes or lesions noted. Course - Re-evaluation Re-evalutation: 01/12/18 21:49 Patient presents with signs and symptoms most consistent with decongestant abuse. She has been using oxymetazoline several times daily for the past 3 months and this is the duration of her symptoms of feelings of prolonged nasal decongestant, chest congestion and feeling of snoring at night. Her main concern is not chest pain. She states that she has had some chest tightness over the past several months particularly when she wakes up and catches herself snoring or breathing very heavily. She states that this is only been going on for approximately past 2-3 months when she has noted that her nasal decongestion has worsened. Her exam is otherwise benign. EKG, labs, chest x- ray all unremarkable. I do not clinically suspect any acute life-threatening pathology as etiology of today's symptoms based on her reassuring history, exam and vitals. I have encouraged immediate discontinuation of all use of decongestants and explained to her that this can take up to 6-8 weeks to resolve. Patient was also complaining of some left ankle pain. X-ray unremarkable. No evidence of traumatic injury or DVT. I have encouraged the patient to use NSAIDs as needed as well as elevate and ice the area. At this time will discharge with return precautions and follow-up recommendations. Verbal discharge instructions given a the bedside and opportunity for questions given. Medication warnings reviewed. Patient is in agreement with this plan and has verbalized understanding of return precautions and the need for primary care follow-up in the next 24-72 hours. - Vital Signs Vital signs: Temp Pulse Resp BP Pulse Ox 98.1 F 79 17 129/78 H 99 01/12/18 22:23 01/12/18 22:23 01/12/18 22:23 01/12/18 22:23 01/12/18 22:23 - Laboratory Result Diagrams: 01/12/18 20:40 01/12/18 20:40 Laboratory results interpreted by me: 01/12/18 20:40 RDW 14.2 H - Diagnostic Test Radiology reviewed: Image reviewed, Reports reviewed Radiology results interpreted by me: 01/12/18 21:50 Chest x-ray: No acute infiltrate or pneumothorax 01/12/18 21:50 Left foot x-ray: No acute fracture or dislocation - EKG Interpretation by Me Additional EKG results interpreted by me: 01/12/18 21:51 Sinus rhythm. Rate 87. No ST elevations or depressions. QTC is 419. Discharge - Discharge Clinical Impression: Decongestant abuse, Nasal congestion due to prolonged use of decongestants, Snoring, Chest discomfort, Left foot pain Condition: Good Disposition: HOME, SELF-CARE Additional Instructions: Please immediately discontinue all nasal decongestants in spray or pill form. The only medication that she should be using for nasal decongestion at this point is a saline nasal sprays, a Kaylyn pot, or Vicks vapor rub on your chest. Your congestion will take 6-8 weeks to completely resolve after complete discontinuation of all decongestion use. Your labs and chest x-ray are normal today. Your left foot x-ray is also normal. Return if you develop worsening chest pain, shortness of breath, vomiting, fever, or any other symptoms that are worrisome to you. Please follow-up with your general doctor at your earliest ability. Prescriptions: Fluticasone Propionate [Flonase Allergy Relief] 15.8 ml NS DAILY #1 spray.susp Referrals: GENEVA BATEMAN PA-C [Primary Care Provider] - Follow up as needed
[2018-01-12 22:37] VITALS: BP 129/78
--- NOTE | 2018-01-12 22:42 | EKG REPORT ---
SEVERITY:- NORMAL ECG - SINUS RHYTHM : Confirmed by: Polly Hayes MD 12-Jan-2018 22:41:56
== END 2018-01-12 22:23 | disposition home or self-care (01) ==
LOC: ER 19:30
DX: F55.8 Abuse of other non-psychoactive substances (principal); R09.81 Nasal congestion; R06.83 Snoring; R07.9 Chest pain, unspecified; M79.672 Pain in left foot; R06.02 Shortness of breath; R09.89 Other specified symptoms and signs involving the circulatory and respiratory systems; I10 Essential (primary) hypertension
CPT/HCPCS: 36415; 71046; 80053; 84484; 85025; 93005; 93010; 99284

== ENCOUNTER 2019-02-26 13:45 | Emergency (ER) | payer SELFPAY ==
--- NOTE | 2019-02-26 15:08 | ER Document Report ---
HPI - HPI Time Seen by Provider: 02/26/19 14:52 Pain Level: 1 Notes: Patient is a 58-year-old female presents emergency department chief complaint of dental pain. Patient reports dental pain to the right lower side of her mouth, states that she has a fear of the dentist which is why she has not gone. She reports that she has several fractured fillings. She denies any fever or drainage from the area. Past Medical History - General Information source: Patient - Social History Smoking Status: Current Every Day Smoker Frequency of alcohol use: None Drug Abuse: None Family History: Reviewed & Not Pertinent - Past Medical History Cardiac Medical History: Reports: Hx Hypercholesterolemia, Hx Hypertension - history of and no longer on meds Denies: Hx Coronary Artery Disease, Hx Heart Attack Pulmonary Medical History: Denies: Hx Asthma, Hx Bronchitis, Hx COPD, Hx Pneumonia Neurological Medical History: Denies: Hx Cerebrovascular Accident, Hx Seizures Renal/ Medical History: Denies: Hx Peritoneal Dialysis Musculoskeletal Medical History: Denies Hx Arthritis, Reports Hx Musculoskeletal Deformity, Reports Hx Musculoskeletal Trauma Traumatic Medical History: Reports: Hx Fractures - right ankle Past Surgical History: Reports: Hx Dilation and Curettage, Hx Genitourinary Surgery - bladder lift with mash, Hx Hysterectomy, Hx Orthopedic Surgery - ORIF of right ankle, Hx Tubal Ligation - Immunizations Hx Diphtheria, Pertussis, Tetanus Vaccination: No Vertical Provider Document - CONSTITUTIONAL Notes: PHYSICAL EXAMINATION: GENERAL: Well-appearing, well-nourished and in no acute distress. HEAD: Atraumatic, normocephalic. EYES: Pupils equal round extraocular movements intact, conjunctiva are normal. ENT: Nares patent, erythema around teeth #28, 29 and 30, no drainable abscess identified. NECK: Normal range of motion LUNGS: No respiratory distress Musculoskeletal: Normal range of motion NEUROLOGICAL: Normal speech, normal gait. PSYCH: Normal mood, normal affect. SKIN: Warm, Dry, normal turgor, no rashes or lesions noted. - INFECTION CONTROL TRAVEL OUTSIDE OF THE [place] IN LAST 30 DAYS: No Course - Re-evaluation Re-evalutation: Presentation is most consistent with likely an infected tooth. Airway is patent. Vitals within normal limits. Patient is able swallow without any difficulty. There is no significant facial swelling. No evidence of Richard angina, apical abscess, or airway obstruction. Patient will be started on antibiotics. I've instructed to follow-up with dentistry as earliest ability for definitive management. At this time will discharge with return precautions and follow-up recommendations. Verbal discharge instructions given a the bedside and opportunity for questions given. Medication warnings reviewed. Patient is in agreement with this plan and has verbalized understanding of return precautions and the need for primary care follow-up in the next 24-72 hours. - Vital Signs Vital signs: Temp Pulse Resp BP Pulse Ox 98.1 F 110 H 16 144/75 H 96 02/26/19 13:59 02/26/19 13:59 02/26/19 13:59 02/26/19 13:59 02/26/19 13:59 Discharge - Discharge Clinical Impression: Pain, dental Condition: Stable Disposition: HOME, SELF-CARE Additional Instructions: You have been seen for dental pain. It is very important that you follow-up with a dentist for definitive care. Take antibiotics as prescribed. Please return if you develop fever greater than 101, swelling in your face, vomiting, difficulty breathing or swallowing, or any other symptoms that are concerning to you. For pain you should take ibuprofen 600 mg every 6 hours as needed. Prescriptions: Clindamycin HCl 300 mg PO TID #21 capsule Referrals: GENEVA BATEMAN PA-C [COMMUNITY BASED STAFF] - Follow up as needed
[2019-02-26 15:17] VITALS: BP 145/85
== END 2019-02-26 15:27 | disposition home or self-care (01) ==
LOC: ER 13:45
DX: K08.89 Other specified disorders of teeth and supporting structures (principal); F17.200 Nicotine dependence, unspecified, uncomplicated; I10 Essential (primary) hypertension
CPT/HCPCS: 99282

== ENCOUNTER 2019-06-12 16:21 | Emergency (ER) | payer SELFPAY ==
[2019-06-12] MEDS ORDERED: KETOROLAC TROMETHAMINE INJ/PF 30 MG/1 ML SDV IM ONE (16:54)
--- NOTE | 2019-06-12 16:54 | ER Document Report ---
ED Medical Screen (RME) - General Chief Complaint: Urinary Problem Stated Complaint: URINARY ISSUE Time Seen by Provider: 06/12/19 16:47 Mode of Arrival: Ambulatory Information source: Patient Notes: 59-year-old female presents to ED for complaint of persistent pain to the left flank area. She states she does not have any blood in her urine that she can see. She states she did recently have some odor to the urine and took some "leftover antibiotics "but it did not help the symptoms. She has been instructed concerning "leftover antibiotics ". She states she has had a little nausea yesterday she had a dizzy spell not today. He denies any history of kidney stones. She states she rarely drinks does not use tobacco or drugs. Patient is alert oriented respirations regular nonlabored speaking in full sentences. I have greeted and performed a rapid initial assessment of this patient. A comprehensive ED assessment and evaluation of the patient, analysis of test results and completion of medical decision making process will be conducted by an additional ED providers. TRAVEL OUTSIDE OF THE [place] IN LAST 30 DAYS: No - Related Data Allergies/Adverse Reactions: meperidine [From Demerol] Allergy (Verified 06/12/19 16:45) Past Medical History - Past Medical History Cardiac Medical History: Reports: Hx Hypercholesterolemia, Hx Hypertension - history of and no longer on meds Denies: Hx Coronary Artery Disease, Hx Heart Attack Pulmonary Medical History: Denies: Hx Asthma, Hx Bronchitis, Hx COPD, Hx Pneumonia Neurological Medical History: Denies: Hx Cerebrovascular Accident, Hx Seizures Renal/ Medical History: Denies: Hx Peritoneal Dialysis Musculoskeltal Medical History: Denies Hx Arthritis, Reports Hx Musculoskeletal Deformity, Reports Hx Musculoskeletal Trauma Traumatic Medical History: Reports: Hx Fractures - right ankle Past Surgical History: Reports: Hx Dilation and Curettage, Hx Genitourinary Surgery - bladder lift with mash, Hx Hysterectomy, Hx Orthopedic Surgery - ORIF of right ankle, Hx Tubal Ligation - Immunizations Hx Diphtheria, Pertussis, Tetanus Vaccination: No Physical Exam - Vital signs Vitals: Temp Pulse BP Pulse Ox 98.5 F 97 144/84 H 98 06/12/19 16:35 06/12/19 16:35 06/12/19 16:35 06/12/19 16:35 Course - Vital Signs Vital signs: Temp Pulse Resp BP Pulse Ox 98.5 F 97 144/84 H 98 06/12/19 16:35 06/12/19 16:35 06/12/19 16:35 06/12/19 16:35
[2019-06-12 17:23] LABS: ABSOLUTE BASOPHILS # (AUTO) 0.1 10^3/uL (0.0-0.2); ABSOLUTE EOSINOPHILS # (AUTO) 0.1 10^3/uL (0.0-0.6); ABSOLUTE LYMPHOCYTES (AUTO) 3.9 10^3/uL (0.5-4.7); ABSOLUTE MONOCYTES (AUTO) 0.8 10^3/uL (0.1-1.4); ABSOLUTE NEUT (AUTO) 5.2 10^3/uL (1.7-8.2); BASOPHILS % (AUTO) 0.9 % (0-2); EOSINOPHILS % (AUTO) 1.2 % (0-6); HEMATOCRIT 42.3 % (36.0-47.0); HEMOGLOBIN 14.4 g/dL (12.0-15.5); LYMPHOCYTES % (AUTO) 38.2 % (13-45); MEAN CORPUSCULAR HEMOGLOBIN 30.8 pg (27.0-33.4); MEAN CORPUSCULAR VOLUME 91 fl (80-97); MONOCYTES % (AUTO) 8.1 % (3-13); PLATELET COUNT 260 10^3/uL (150-450); RED BLOOD COUNT 4.67 10^6/uL (3.72-5.28); RED CELL DISTRIBUTION WIDTH 13.7 % (11.5-14.0); SEGMENTED NEUTROPHILS % (AUTO) 51.6 % (42-78); TOTAL CELLS COUNTED % (AUTO) 100 %; WHITE BLOOD COUNT 10.2 10^3/uL (4.0-10.5)
[2019-06-12 17:36] LABS: APPEARANCE,URINE CLEAR; BILIRUBIN,URINE NEGATIVE (NEGATIVE); COLOR,URINE YELLOW; GLUCOSE, URINE NEGATIVE (NEGATIVE); KETONES,URINE NEGATIVE (NEGATIVE); PROTEIN,URINE NEGATIVE (NEGATIVE); UROBILINOGEN,URINE NEGATIVE mg/dL (<2.0)
[2019-06-12 17:37] LABS: ALBUMIN 4.3 g/dL (3.5-5.0); ALKALINE PHOSPHATASE 64 U/L (38-126); ANION GAP 7 (5-19); ASPARTATE AMINO TRANSFERASE 30 U/L (14-36); BILIRUBIN,DIRECT 0.2 mg/dL (0.0-0.4); BILIRUBIN,TOTAL 0.5 mg/dL (0.2-1.3); BLOOD UREA NITROGEN 19 mg/dL (7-20); CALCIUM 9.9 mg/dL (8.4-10.2); CARBON DIOXIDE 31 mmol/L (22-30); CHLORIDE 103 mmol/L (98-107); GLUCOSE 107 mg/dL (75-110); POTASSIUM 4.7 mmol/L (3.6-5.0); TOTAL PROTEIN 7.6 g/dL (6.3-8.2)
--- NOTE | 2019-06-12 18:09 | ER Document Report ---
ED General - General Chief Complaint: Urinary Problem Stated Complaint: URINARY ISSUE Time Seen by Provider: 06/12/19 16:47 Mode of Arrival: Ambulatory Information source: Patient Notes: 59-year-old female presents emergency department with complaints of left flank pain since mid April. Reports her urine had a strong odor also. Denies pain with void. Denies fever vomiting diarrhea. Denies vaginal discharge. Patient reports the pain is not positional. Patient reports in May she took 6 days of Keflex that she had leftover from a previous infection. She reports she felt a little bit better after that. TRAVEL OUTSIDE OF THE [place] IN LAST 30 DAYS: No - HPI Onset: Other - april Quality of pain: Achy Associated symptoms: None Exacerbated by: Denies Relieved by: Denies Similar symptoms previously: No Recently seen / treated by doctor: No - Related Data Allergies/Adverse Reactions: meperidine [From Demerol] Allergy (Verified 06/12/19 16:45) Past Medical History - General Information source: Patient Last Menstrual Period: hyst - Social History Smoking Status: Unknown if Ever Smoked Chew tobacco use (# tins/day): No Frequency of alcohol use: Rare Drug Abuse: None Occupation: route sales delivery drivers supervisor Family History: Reviewed & Not Pertinent Patient has suicidal ideation: No Patient has homicidal ideation: No - Past Medical History Cardiac Medical History: Reports: Hx Hypercholesterolemia, Hx Hypertension - history of and no longer on meds Denies: Hx Coronary Artery Disease, Hx Heart Attack Pulmonary Medical History: Denies: Hx Asthma, Hx Bronchitis, Hx COPD, Hx Pneumonia Neurological Medical History: Denies: Hx Cerebrovascular Accident, Hx Seizures Renal/ Medical History: Denies: Hx Peritoneal Dialysis Musculoskeletal Medical History: Denies Hx Arthritis, Reports Hx Musculoskeletal Deformity, Reports Hx Musculoskeletal Trauma Psychiatric Medical History: Reports: Hx Attention Deficit Hyperactivity Disorder Traumatic Medical History: Reports: Hx Fractures - right ankle Past Surgical History: Reports: Hx Dilation and Curettage, Hx Genitourinary Surgery - bladder lift with mash, Hx Gynecologic Surgery - L oopharectomy, Hx Hysterectomy, Hx Orthopedic Surgery - ORIF of right ankle, Hx Tubal Ligation - Immunizations Hx Diphtheria, Pertussis, Tetanus Vaccination: No Review of Systems - Review of Systems Notes: Review HPI for review of systems., All other systems negative Physical Exam - Vital signs Vitals: Temp Pulse BP Pulse Ox 98.5 F 97 144/84 H 98 12/07/19 16:35 06/12/19 16:35 06/12/19 16:35 06/12/19 16:35 - General General appearance: Appears well, Alert In distress: None - HEENT Head: Normocephalic Eyes: Normal Conjunctiva: Normal Extraocular movements intact: Yes Eyelashes: Normal Neck: Normal, Supple. No: Lymphadenopathy - Respiratory Respiratory status: No respiratory distress Chest status: Nontender Breath sounds: Normal Chest palpation: Normal - Cardiovascular Rhythm: Regular Heart sounds: Normal auscultation Murmur: No - Abdominal Inspection: Normal Distension: No distension Bowel sounds: Normal Tenderness: Nontender - Back Back: Normal, Nontender. No: CVA tenderness - Extremities General upper extremity: Normal ROM, Normal strength General lower extremity: Normal ROM, Normal strength, Normal weight bearing - Neurological Neuro grossly intact: Yes Cognition: Normal Orientation: AAOx4 [place] Coma Scale Eye Opening: Spontaneous [place] Coma Scale Verbal: Oriented [place] Coma Scale Motor: Obeys Commands [place] Coma Scale Total: 15 Speech: Normal - Psychological Associated symptoms: Normal affect, Normal mood - Skin Skin Temperature: Warm Skin Moisture: Dry Skin Color: Normal Course - Re-evaluation Re-evalutation: 06/12/19 18:41 59-year-old female presents emergency department with left-sided flank pain that is been happening since mid April. She reports in May she took some l eftover Keflex that she had for approximately 6 days and seemed to feel little bit better. She noticed her urine has a strong odor. She denies fever vomiting diarrhea. Denies vaginal discharge denies pain with void. No past medical history of kidney stones. Patient received Toradol by the [facility] provider. Denies pain at this time. She reports she usually takes Tylenol arthritis for her chronic ankle pain. Labs unremarkable ultrasound negative. Patient was instructed on results. Instructed to push fluids follow-up with her primary care provider. She reports she does not have insurance. [facility] She was instructed to call get an appointment for her chronic issues as well as a recheck. She was also instructed to return here for worsening symptoms or concerns. She verbalized understanding to all instructions. 06/12/19 17:00 06/12/19 17:00 MCV 91 fl (80-97) 06/12/19 17:00 MCH 30.8 pg (27.0-33.4) 06/12/19 17:00 MCHC 34.0 g/dL (32.0-36.0) 06/12/19 17:00 RDW 13.7 % (11.5-14.0) 06/12/19 17:00 Seg Neutrophils % 51.6 % (42-78) 06/12/19 17:00 Chloride 103 mmol/L (98-107) 06/12/19 17:00 Carbon Dioxide 31 mmol/L (22-30) H 06/12/19 17:00 Anion Gap 7 (5-19) 06/12/19 17:00 Est GFR ( Amer) > 60 (>60) 06/12/19 17:00 Glucose 107 mg/dL (75-110) 06/12/19 17:00 Calcium 9.9 mg/dL (8.4-10.2) 06/12/19 17:00 Total Bilirubin 0.5 mg/dL (0.2-1.3) 06/12/19 17:00 AST 30 U/L (14-36) 06/12/19 17:00 Alkaline Phosphatase 64 U/L (38-126) 06/12/19 17:00 Total Protein 7.6 g/dL (6.3-8.2) 06/12/19 17:00 Albumin 4.3 g/dL (3.5-5.0) 06/12/19 17:00 Urine Color YELLOW 06/12/19 17:20 Urine Appearance CLEAR 06/12/19 17:20 Urine pH 6.0 (5.0-9.0) 06/12/19 17:20 Ur Specific [place] 1.020 06/12/19 17:20 Urine Protein NEGATIVE mg/dL (NEGATIVE) 06/12/19 17:20 Urine Glucose (UA) NEGATIVE mg/dL (NEGATIVE) 06/12/19 17:20 Urine Ketones NEGATIVE mg/dL (NEGATIVE) 06/12/19 17:20 Urine Blood NEGATIVE (NEGATIVE) 06/12/19 17:20 Urine RBC (Auto) 1 /HPF 06/12/19 17:20 Renal Ultrasound 06/12/19 16:51 IMPRESSION: No hydronephrosis. 06/12/19 18:59 Dictation of this chart was performed using voice recognition software; th erefore, there may be some unintended grammatical errors. - Vital Signs Vital signs: Temp Pulse Resp BP Pulse Ox 98.5 F 97 144/84 H 98 06/12/19 16:46 06/12/19 16:35 06/12/19 16:35 06/12/19 16:46 - Laboratory Result Diagrams: 06/12/19 17:00 06/12/19 17:00 Laboratory results interpreted by me: 06/12/19 17:00 Carbon Dioxide 31 H - Diagnostic Test Radiology reviewed: Image reviewed, Reports reviewed Discharge - Discharge Clinical Impression: Flank pain Condition: Stable Disposition: HOME, SELF-CARE Instructions: Flank Pain ([facility]), Toradol Injection ([facility]) Additional Instructions: *You have been evaluated for flank pain Push fluids take Tylenol as indicated for pain *[facility] *Return to ED for worsening condition, changes, needs, concerns, increased pain Monitor your blood pressure. Your blood pressure was elevated today. This may be because you were anxious, in pain or because you need medication. It is important to follow up with your primary care provider for full evaluation. Forms: Elevated Blood Pressure
--- NOTE | 2019-06-12 18:34 | RADIOLOGY REPORT (SQ) ---
EXAM DESCRIPTION: U/S RETROPERITON (RENAL/AORTA) COMPLETED DATE/TIME: 06/12/2019 5:44 pm REASON FOR STUDY: right flank pain COMPARISON: None. TECHNIQUE: Dynamic and static grayscale images acquired of the kidneys and bladder and recorded on P ACS. Additional selected color Doppler and spectral images recorded. LIMITATIONS: None. FINDINGS: RIGHT KIDNEY: Normal size. Normal echogenicity. No solid or suspicious masses. No hydronep hrosis. No calcifications. LEFT KIDNEY: Normal size. Normal echogenicity. No solid or suspicious masses. No hydronephrosis. No calcifications. BLADDER: Decompressed. OTHER FINDINGS: No other significant finding. IMPRESSION: No hydronephrosis. TECHNICAL DOCUMENTATION: JOB ID: [id number] [place]-[id number] 2010 [employer]- All Rights Reserved Reading location - IP/workstation name: [email or web address]
[2019-06-12 19:14] VITALS: BP 137/87
== END 2019-06-12 19:14 | disposition home or self-care (01) ==
LOC: ER 16:21
DX: R10.9 Unspecified abdominal pain (principal); R39.198 Other difficulties with micturition; I10 Essential (primary) hypertension
CPT/HCPCS: 36415; 85025; 80053; 81001; 76770; J1885; 96372; 99284

== ENCOUNTER → 2020-07-13 | Outpatient (CLI) | payer BC ==
--- NOTE | 2020-07-13 09:42 | WOMENS IMAGING REPORT ---
EXAM DESCRIPTION: BILAT SCREENING MAMMO W/CAD IMAGES COMPLETED DATE/TIME: 07/13/2020 7:55 am REASON FOR STUDY: Z12.39 ENCOUNTER FOR OTHER SCREENING FOR MALIGNANT NEOPLASM OF BREAST Z12.39 ENCO UNTER FOR OTH SCREENING FOR MALIGNANT NEOPLASM OF COMPARISON: 2017 EXAM PARAMETERS: Standard craniocaudal and mediolateral oblique views of each breast recorded using digital acquisition. Read with the assistance of CAD. .[facility] - [employer] Resident Care Technician Version 9.2 LIMITATIONS: None. FINDINGS: No suspicious masses, suspicious calcifications or architectural distortion. No areas of c oncern. IMPRESSION: NEGATIVE MAMMOGRAM. BIRADS 1 BREAST DENSITY: b. There are scattered areas of fibroglandular density. BIRAD: ASSESSMENT: 1 NEGATIVE RECOMMENDATION: ROUTINE SCREENING COMMENT: The patient has been notified of the results by letter per MQSA requirements. Additional no tification policies are in place for contacting patient with suspicious or incomplete findings. Quality ID #[id number]: The [employer] recommends an annual screening mammogram for women aged 40 years or over. This facility utilizes a reminder system to ensure that all patients receive reminder letters, and/or direct phone calls for appointments. This includes reminders for routine scr eening mammograms, diagnostic mammograms, or other Breast Imaging Interventions when appropriate. Th is patient will be placed in the appropriate reminder system. TECHNICAL DOCUMENTATION: FINDING NUMBER: (1) ASSESSMENT: (1) JOB ID: [id number] 2010 [employer]- All Rights Reserved Reading location - IP/workstation name: [email or web address]
== END ==
LOC: WI 07:15
PROVIDERS: ATTEND Nurse Practitioner Family
DX: Z12.31 Encounter for screening mammogram for malignant neoplasm of breast (principal)
CPT/HCPCS: 77067